=== PATIENT | male | born 1980 | race African-American/Black ===

== ENCOUNTER 2017-10-06 18:11 | Emergency (ER) | payer MEDICAID ==
[2017-10-06 18:17] VITALS: BP 148/87
[2017-10-06] MEDS ORDERED: LIDOCAINE 2%-EPI 1:100000 20 ML MDV SUBQ STA (20:05)
[2017-10-06] MEDS ORDERED: AMOX/CLAV 875 MG/125 MG TABLET PO STA (20:37)
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
== END 2017-10-06 20:48 | disposition home or self-care (01) ==
LOC: ED 18:11
DX: F17.200 Nicotine dependence, unspecified, uncomplicated (principal); S01.511A Laceration without foreign body of lip, initial encounter; W50.3XXA Accidental bite by another person, initial encounter; Y92.009 Unspecified place in unspecified non-institutional (private) residence as the place of occurrence of the external cause
CPT/HCPCS: 12051; 99283; A9270

== ENCOUNTER 2017-11-12 09:54 | Emergency (ER) | payer MEDICAID ==
[2017-11-12 10:18] VITALS: BP 154/74
--- NOTE | 2017-11-12 11:50 | XRAY Report ---
EXAM: LEFT HAND RADIOGRAPHY EXAM DATE: 11/12/2017 11:30 AM. CLINICAL HISTORY: Left hand injury. Fall on outstretched hand injury yesterday. COMPARISON: None. TECHNIQUE: 3 views. FINDINGS: Bones: Distal left fifth metacarpal boxer fracture with mild apex dorsal angulation and mild displac ement. Joints: Normal. No subluxations. Soft Tissues: Left hand soft tissue swelling. IMPRESSION: 1. Distal left fifth metacarpal boxer fracture with mild apex dorsal angulation and mild displacement . [facility] Referring Provider Line: [phone] SITE ID: [id number]
--- NOTE | 2017-11-12 12:07 | ED Physician Documentation ---
PD HPI UPPER EXT INJURY - Stated complaint Stated Complaint: L HAND SWOLLEN-INJ - Chief complaint Chief Complaint: Trauma Ext - History obtained from History obtained from: Patient - History of Present Illness Location: Left, Hand Type of injury: Fall Where injury occurred: Street Timing - onset: Yesterday Worsened by: Moving, Palpating Associated symptoms: Swelling Similar symptoms before: Has not had sx before - Additonal information Additional information: The patient is a 37-year-old male who presents with pain and swelling of his left hand. He states he tripped over a curb yesterday and fell impacting his left hand. He is left-hand dominant. He denies any other injuries. Review of Systems Constitutional: denies: Fever Skin: denies: Abrasion (s), Laceration (s) Musculoskeletal: reports: Extremity pain (Left hand.). denies: Neck pain, Back pain Neurologic: denies: Focal weakness, Numbness, Head injury PD PAST MEDICAL HISTORY - Past Medical History Past Medical History: No Endocrine/Autoimmune: None - Past Surgical History Past Surgical History: No - Allergies Allergies/Adverse Reactions: Allergies Allergy/AdvReac Type Severity Reaction Status Date / Time No Known Drug Allergies Allergy Verified 11/12/17 10:17 - Social History Does the pt smoke?: Yes Smoking Status: Current every day smoker Does the pt drink ETOH?: No Does the pt have substance abuse?: No - Immunizations Immunizations are current?: No - POLST Patient has POLST: No PD ED PE NORMAL - Vitals Vital signs reviewed: Yes (Systolic hypertension initially.) - General General: Alert and oriented X 3, Well developed/nourished - HEENT HEENT: Atraumatic - Respiratory Respiratory: No respiratory distress - Derm Derm: No rash - Extremities Extremities: Other (There is swelling of the left hand, with tenderness to palpation over the ulnar aspect. There is no break in the integument. Distal neurovascular is intact.) - Neuro Neuro: Alert and oriented X 3, No motor deficit, No sensory deficit Results - Vitals Vitals: Vital Signs - 24 hr 11/12/17 10:12 Temperature 37.1 C Heart Rate 77 Respiratory 15 Rate Blood Pressure 154/74 H O2 Saturation 99 Oxygen O2 Source Room air - Rads (name of study) left hand Radiology: Prelim report reviewed, EMP read contemporaneously, See rad report ( Distal fifth metacarpal fracture, with mild dorsal angulation and mild displacement.) Procedures - Splint (location) left hand Splint applied by: Physician Type of splint: Fiberglass, Ulnar gutter Other: Patient tolerated well, No complications, Neurovascular intact, Sling provided PD MEDICAL DECISION MAKING - ED course Complexity details: reviewed results, re-evaluated patient, considered differential, d/w patient ED course: The patient's presentation is significant for a left distal fifth metacarpal fracture, which is visualized on x-ray, consistent with a boxer's fracture. Treatment in the emergency department included application of a fiberglass ulnar gutter splint. An arm sling was applied. I discussed with the patient the expected course of healing, symptomatic treatment and outpatient follow-up, as well as potentially worrisome signs or symptoms that should prompt reevaluation in the emergency department. Departure - Departure Disposition: 01 Home, Self Care Clinical Impression: Fracture of fifth metacarpal bone of left hand Qualifiers: Encounter type: initial encounter Fracture type: closed Metacarpal location: neck Fracture alignment: displaced Qualified Code(s): S62.337A - Displaced fracture of neck of fifth metacarpal bone, left hand, initial encounter for closed fracture Condition: Stable Instructions: ED Cast Care Fiberglass, ED Fx Hand Closed Follow-Up: [facility] [Provider Group] Comments: Keep the splint dry. Keep your left arm elevated as much the time as possible. Apply ice pack intermittently for the first 3 days. You can use Tylenol or ibuprofen if needed for discomfort. Follow-up with orthopedics within 1 week. Call to schedule appointment. Return to the emergency department if you develop increasing pain, or otherwise worsening symptoms. Forms: Activity restrictions Discharge Date/Time: 11/12/17 12:23
== END 2017-11-12 12:23 | disposition home or self-care (01) ==
LOC: ED 09:54
DX: F17.200 Nicotine dependence, unspecified, uncomplicated (principal); S62.337A Displaced fracture of neck of fifth metacarpal bone, left hand, initial encounter for closed fracture; W01.0XXA Fall on same level from slipping, tripping and stumbling without subsequent striking against object, initial encounter; Y92.480 Sidewalk as the place of occurrence of the external cause
CPT/HCPCS: 29125; 99283